=== PATIENT | female | born 1985 | race Caucasian/White ===

== ENCOUNTER 2024-02-05 17:40 | Outpatient (CLI) | payer MEDICAID, SELFPAY ==
[2024-02-05 19:37] LABS: Basophils # 0.1 K/mm3 (0-0.2); Basophils % 0.7 % (0.1-2.0); Eosinophils # 0.1 K/mm3 (0.0-0.4); Hematocrit 40.5 % (37.0-47.0); Hemoglobin 13.9 g/dL (12.2-16.2); Lymphocytes % 28.6 % (10-50); Mean Corpuscular HGB Conc 34.4 g/dL (31.8-35.4); Mean Corpuscular Hemoglobin 30.7 pg (27.0-31.2); Mean Corpuscular Volume 89.3 fl (81-99); Mean Platelet Volume 10.5 fl (7.4-10.4); Monocytes # 0.5 K/mm3 (0.1-1.0); Neutrophils # 4.4 K/mm3 (1.8-7.8); Neutrophils % 62.8 % (37.0-80.0); Platelet Count 239 K/mm3 (142-424); Red Blood Count 4.54 M/mm3 (4.20-5.40)
[2024-02-05 19:47] LABS: Albumin Level 4.3 g/dl (3.5-5.0); Chloride 105 mmol/L (98-107); Potassium 3.7 mmoL/L (3.5-5.1); Sodium 137 mmol/L (136-145)
[2024-02-05 19:49] LABS: Blood Urea Nitrogen 4 mg/dl (7-17); Estimated Glomerular Filt Rate 112 ml/min (>60); GFR (African American) 136 ML/MIN (>60)
[2024-02-05 19:50] LABS: Alanine Aminotransferase 18 U/L (12-78); Albumin/Globulin Ratio 1.3 (1.1-1.8); Alkaline Phosphatase 166 U/L (38-126); Anion Gap 15.7 mEq/L (5-15); Aspartate Amino Transferase 73 U/L (14-36); Bilirubin,Total 1.2 mg/dl (0.2-1.3); Calcium 9.8 mg/dl (8.4-10.2); Carbon Dioxide 20 mmol/L (22.0-30.0); Globulin 3.2 g/dL (1.3-3.2); Glucose 86 mg/dl (74-100); Total Protein,Serum 7.5 g/dl (6.3-8.2)
[2024-02-05 20:00] LABS: Barbiturates Screen,Urine Negative ng/ml (<200)
[2024-02-05 20:01] LABS: Benzodiazepines Screen,Urine Positive ng/ml (<200)
[2024-02-05 20:02] LABS: Cannabinoid Screen,Urine Negative ng/ml (<50); Cocaine Screen,Urine Positive ng/ml (<300)
[2024-02-05 20:03] LABS: Methadone Screen,Urine Negative ng/ml (<300)
[2024-02-05 20:04] LABS: Opiate Screen,Urine Negative ng/ml (<300); Phencyclidine Screen,Urine Negative ng/ml (<25)
[2024-02-05 20:08] LABS: Urine Pregnancy, HCG Qual. Negative (Negative)
[2024-02-05 21:12] LABS: Amphetamine/Metha Screen,Urine Positive ng/ml (<1000)
[2024-02-05 21:47] LABS: HIV (1&2) Antibody Rapid NONREACTIVE (NONREACTIVE)
[2024-02-07 11:19] LABS: Rapid Plasma Reagin Ab Titer Non Reactive titer (NonRea<1:1)
[2024-02-07 22:08] LABS: QuantiFERON-TB Gold Plus Negative (Negative)
[2024-02-10 14:17] LABS: HBsAg Screen Negative (Negative); HCV Ab Reactive (Non Reactive); Hep A Ab, IGM Negative (Negative); Hep B Core Ab, IgM Negative (Negative)
== END 2024-02-05 23:59 | disposition home or self-care (01) ==
PROVIDERS: PCP Nurse Practitioner Family; Visit Provider Nurse Practitioner Family
DX: F11.20 Opioid dependence, uncomplicated (principal); F19.99 Other psychoactive substance use, unspecified with unspecified psychoactive substance-induced disorder
CPT/HCPCS: 80053; 80074; 80307; 81025; 85025; 86480; 86593; 87389; 87491